=== PATIENT | male | born 1960 | race Caucasian/White ===

== ENCOUNTER 2017-11-20 16:42 | Inpatient (IN) | payer OTHER ==
[~2017-11-20] VITALS: Ht 188 cm; Wt 215.0 kg
[~2017-11-20 16:42] MED LIST: ARTHROTEC 751 TABLET PO; Arthrotec 50 PO; BACTRIM,SEPT1 TABLET PO; CIPRO500 MG PO; Calan SR,Covera HS,I PO; DICLOFENAC-MIS1 EAC1 PO; Feosol PO; Levaquin PO; Maxipime IV; SYNTHROID25 MCG PO; TENORMIN50 MG PO; Tenormin PO; ULTRAM50 MG PO; VERAPAMIL HCL240 MG PO; VESICARE5 MG PO; ZYVOX600 MG PO
[2017-11-20 17:54] LABS: HEMATOCRIT 43.9 % (38.0-50.0); HEMOGLOBIN 14.8 G/DL (12.5-16.6); MCH 28.3 PG (29.0-34.0); MCHC 33.7 G/DL (30.0-36.0); MCV 83.9 FL (86-99); PLATELET COUNT 298 K/uL (156-360); RBC DIS.WIDTH-SD 42.5 % (39-53); RED BLOOD COUNT 5.23 M/uL (4.00-5.50); WHITE BLOOD COUNT 11.8 K/uL (4.1-10.2)
[2017-11-20 18:05] LABS: CHLORIDE 110 mEq/L (99-109); SODIUM 142 mEq/L (136-147)
[2017-11-20 18:07] LABS: GLUCOSE 92 mg/dL (70-99)
[2017-11-20 18:11] LABS: GFR ESTIMATE (CALCULATED) 37 mL/min/ (58.99-99999)
[2017-11-20 18:12] LABS: UREA NITROGEN (BUN) 22 mg/dL (9-23)
[2017-11-20 18:38] LABS: APPEARANCE SL.HAZY ((CLEAR)); BILIRUBIN NEGATIVE; BLOOD MODERATE; COLOR YELLOW ((YELLOW)); GLUCOSE (STRIP) NEGATIVE; KETONES NEGATIVE; LEUKOCYTES LARGE; NITRITE NEGATIVE; PROTEIN (STRIP) 100; SPECIFIC GRAVITY 1.017 (1.000-1.030); UROBILINOGEN 0.2 MG/DL (0.2-1.0)
[2017-11-20] MEDS ORDERED: VERAPAMIL ER300 MG PO (18:42)
[2017-11-20] MEDS ORDERED: ARTHRITIS PAIN650 M5 PO (18:43)
[2017-11-20] MEDS ORDERED: LEVOTHYROXINE25 MCG PO (18:44)
[2017-11-20] MEDS ORDERED: ATENOLOL50 MG PO (18:44)
[2017-11-20] MEDS ORDERED: TRAMADOL HCL50 MG PO (18:45)
[2017-11-20] MEDS ORDERED: CENTRUM SILVER1 EAC5 PO (18:47)
[2017-11-20 19:27] LABS: BACTERIA NONE SEEN /HPF; EPITHELIAL CELLS RARE /HPF; MUCUS TRACE /LPF; RED BLOOD CELLS 40-50 /HPF (0-5); UCUL ADDED? YES; WHITE BLOOD CELLS TNTC /HPF (0-5)
[2017-11-21 00:22] VITALS: BP 179/93
[2017-11-21 04:16] VITALS: BP 148/86
[2017-11-21 05:12] LABS: HEMATOCRIT 42.8 % (38.0-50.0); MCH 27.6 PG (29.0-34.0); MCHC 32.7 G/DL (30.0-36.0); MCV 84.4 FL (86-99); PLATELET COUNT 280 K/uL (156-360); RBC DIS.WIDTH-CV 13.9 % (11.8-14.6); RBC DIS.WIDTH-SD 42.8 % (39-53); RED BLOOD COUNT 5.07 M/uL (4.00-5.50); WHITE BLOOD COUNT 12.8 K/uL (4.1-10.2)
[2017-11-21 05:31] LABS: CHLORIDE 108 MEQ/L (99-109); GFR ESTIMATE (CALCULATED) 37 mL/min/ (58.99-99999); GLUCOSE 97 mg/dL (70-99); POTASSIUM 4.3 MEQ/L (3.7-5.4); SODIUM 139 MEQ/L (136-147); UREA NITROGEN (BUN) 20 mg/dL (9-23)
[2017-11-21 08:04] VITALS: BP 133/77
[2017-11-21 15:54] VITALS: BP 178/91
[2017-11-21 19:33] VITALS: BP 133/61
[2017-11-21 23:13] VITALS: BP 135/60
[2017-11-22 04:23] VITALS: BP 128/64
[2017-11-22 06:21] LABS: HEMATOCRIT 42.9 % (38.0-50.0); HEMOGLOBIN 13.7 G/DL (12.5-16.6); MCH 27.1 PG (29.0-34.0); MCHC 31.9 G/DL (30.0-36.0); PLATELET COUNT 281 K/uL (156-360); RBC DIS.WIDTH-CV 13.8 % (11.8-14.6); RBC DIS.WIDTH-SD 42.7 % (39-53); RED BLOOD COUNT 5.05 M/uL (4.00-5.50); WHITE BLOOD COUNT 8.4 K/uL (4.1-10.2)
[2017-11-22 06:42] LABS: ALBUMIN 3.2 G/DL (3.2-4.8); CHLORIDE 107 MEQ/L (99-109); CREATININE 1.8 MG/DL (0.6-1.3); GFR ESTIMATE (CALCULATED) 42 mL/min/ (58.99-99999); GLUCOSE 86 mg/dL (70-99); PHOSPHORUS 3.1 mg/dL (2.5-4.9); POTASSIUM 3.8 MEQ/L (3.7-5.4); SODIUM 138 MEQ/L (136-147); UREA NITROGEN (BUN) 19 mg/dL (9-23)
[2017-11-22 08:00] VITALS: BP 135/70
[2017-11-22 09:21] LABS: INTACT PARATHYROID HORMONE 72 pg/mL (10-69)
[2017-11-22 16:11] VITALS: BP 135/73
[2017-11-22 19:17] VITALS: BP 138/66
[2017-11-22 23:30] VITALS: BP 141/64
[2017-11-23 06:26] LABS: ALBUMIN 3.1 G/DL (3.2-4.8); ALKALINE PHOSPHATASE 63 IU/L (3-129); ALT (GPT) 11 IU/L (3-49); AST (GOT) 14 IU/L (2-34); CHLORIDE 107 MEQ/L (99-109); CREATININE 1.8 MG/DL (0.6-1.3); GFR ESTIMATE (CALCULATED) 42 mL/min/ (58.99-99999); GLUCOSE 91 mg/dL (70-99); PHOSPHORUS 3.7 mg/dL (2.5-4.9); POTASSIUM 4.1 MEQ/L (3.7-5.4); POTASSIUM 4.2 MEQ/L (3.7-5.4); SODIUM 140 MEQ/L (136-147); TOTAL BILIRUBIN 0.6 MG/DL (0.0-1.0); TOTAL PROTEIN 6.2 G/DL (6.4-8.3); UREA NITROGEN (BUN) 21 mg/dL (9-23); UREA NITROGEN (BUN) 22 mg/dL (9-23)
[2017-11-23 07:07] VITALS: BP 131/62
[2017-11-23] MEDS ORDERED: DOXYCYCLINE HY100 M3 PO (12:36)
[2017-11-23] MEDS ORDERED: SILVADENE,SSD,T50 GM TP (12:37)
[2017-11-23] MEDS ORDERED: CIPRO500 MG PO (12:38)
== END 2017-11-23 16:29 | disposition home or self-care (01) | DRG 683 ==
LOC: EME 16:42 → EDOF 20:49 → 2EAST 20:49 → ENRESERV 20:51 → 2EAST 23:29
PROVIDERS: Emergency Medicine; Hospitalist; Internal Medicine; Internal Medicine Nephrology
PROC: 0H9JXZZ Drainage of Left Upper Leg Skin, External Approach (ICD-10-PCS; principal; 2017-11-21)
DX: N17.9 Acute kidney failure, unspecified (principal); E66.01 Morbid (severe) obesity due to excess calories; T39.395A Adverse effect of other nonsteroidal anti-inflammatory drugs [NSAID], initial encounter; N39.0 Urinary tract infection, site not specified; R31.9 Hematuria, unspecified; L03.115 Cellulitis of right lower limb; L03.116 Cellulitis of left lower limb; L97.219 Non-pressure chronic ulcer of right calf with unspecified severity; I50.9 Heart failure, unspecified; N18.9 Chronic kidney disease, unspecified; I13.0 Hypertensive heart and chronic kidney disease with heart failure and stage 1 through stage 4 chronic kidney disease, or unspecified chronic kidney disease; L97.929 Non-pressure chronic ulcer of unspecified part of left lower leg with unspecified severity; I87.2 Venous insufficiency (chronic) (peripheral); M17.0 Bilateral primary osteoarthritis of knee; G47.33 Obstructive sleep apnea (adult) (pediatric); E03.9 Hypothyroidism, unspecified; G89.29 Other chronic pain; D64.9 Anemia, unspecified; Z68.44 Body mass index [BMI] 60.0-69.9, adult; Z87.891 Personal history of nicotine dependence; J45.909 Unspecified asthma, uncomplicated; K80.20 Calculus of gallbladder without cholecystitis without obstruction; I89.0 Lymphedema, not elsewhere classified
CPT/HCPCS: 73560; 76770; 80048; 80053; 80069; 80202; 81003; 82306; 82607; 83970; 85027; 87070; 87075; 87086; 87205; 87641; 99281; 99285; J0690; J0692; J1644; J3370; J7030; J7040